=== PATIENT | female | born 1965 | race Caucasian/White ===

== ENCOUNTER → 2022-06-03 14:10 | Outpatient (BNVA) | payer MEDICAID, SELFPAY | PROVIDERS: Family Provider Nurse Practitioner Family; PCP Nurse Practitioner Family; Visit Provider Nurse Practitioner | DX: Z12.4 Encounter for screening for malignant neoplasm of cervix (principal); Z13.6 Encounter for screening for cardiovascular disorders; E55.9 Vitamin D deficiency, unspecified; M54.9 Dorsalgia, unspecified | CPT/HCPCS: 88175 ==

== ENCOUNTER → 2022-06-16 08:58 | Outpatient (BNVA) | payer MEDICAID, SELFPAY | PROVIDERS: Family Provider Nurse Practitioner Family; PCP Nurse Practitioner Family; Visit Provider Nurse Practitioner | DX: M54.9 Dorsalgia, unspecified (principal); Z13.6 Encounter for screening for cardiovascular disorders; E55.9 Vitamin D deficiency, unspecified | CPT/HCPCS: 72040; 72072; 72100; 80053; 80061; 82306; 82607; 84443; 85025 ==

== ENCOUNTER 2023-05-09 13:23 | Emergency (ER) | payer MEDICAID, SELFPAY ==
[2023-05-09 14:10] VITALS: PULSE 116; RESP 16; TEMP 36.7; O2SAT 96; BMI 19.3
[2023-05-09 16:48] LABS: Basophils # 0.1 10^3/uL (0.0-0.1); Basophils % 0.7 %; Eosinophils # 0.1 10^3/uL (0.0-0.8); Eosinophils % 0.9 %; Hematocrit 46.4 % (37.0-47.0); Hemoglobin 15.4 g/dL (11.5-15.3); Lymphocytes # 3.3 10^3/uL (0.8-4.8); Lymphocytes % 31.7 %; Mean Corpuscular HGB Conc 33.2 g/dL (30.0-36.0); Mean Corpuscular Volume 93.4 fl (81-99); Mean Platelet Volume 9.8 fL (7.4-10.4); Monocytes # 0.7 10^3/uL (0.2-0.9); Neutrophils # 6.17 10^3/uL (1.8-7.7); Neutrophils % 59.5 %; Nucleated Red Blood Cells % 0 %; Platelet Count 215 10^3/cmm (130-400); Red Blood Count 4.97 10^6/uL (4.1-5.3); Red Cell Distribution Width 13.1 % (12.1-15.1); White Blood Count 10.4 10^3/uL (4.0-10.0)
[2023-05-09 17:08] LABS: Alanine Aminotransferase 11 U/L (0-33); Albumin Level 4.8 g/dL (3.5-5.2); Alkaline Phosphatase 89 U/L (35-105); Anion Gap 19.1 (5-19); Aspartate Amino Transferase 18 U/L (0-32); Blood Urea Nitrogen 13 mg/dL (6-20); Carbon Dioxide 23 mmol/L (22-29); Chloride 102 mmol/L (98-107); Creatinine Clr Calc Pharmacy 78.3475; Globulin 2.5 g/dL (1.3-4.6); Glomerular Filtration Rate 85.6 mL/min (90-130); Glucose 99 mg/dL (65-115); Lipase 26 U/L (13-60); Magnesium 1.9 mg/dL (1.7-2.3); Osmolality Calculated 290 mOsm/kg (285-295); Potassium 4.1 mmol/L (3.5-5.1); Sodium 140 mmol/L (136-145); Total Bilirubin 0.3 mg/dL (0.15-1.2); Total Protein 7.3 g/dL (6.6-8.7)
[2023-05-09 18:15] VITALS: BP 153/111; PULSE 101; O2SAT 99
[2023-05-09 18:30] VITALS: PULSE 94; O2SAT 99
--- NOTE | 2023-05-09 18:34 | CTR_ITS ---
PROCEDURE INFORMATION: Exam: CT Abdomen And Pelvis With Contrast Exam date and time: 05/09/2023 7:25 PM Age: 57 years old Clinical indication: Abdominal pain; Epigastric; Additional info: Epigastric pain, nausea TECHNIQUE: Imaging protocol: Computed tomography of the abdomen and pelvis with contrast. Radiation optimization: All CT scans at this facility use at least one of these dose optimization techniques: automated exposure control; mA and/or kV adjustment per patient size (includes targeted exams where dose is matched to clinical indication); or iterative reconstruction. Contrast material: OMNI 350; Contrast volume: 100 ml; Contrast route: INTRAVENOUS (IV); REPORTING DATA: Count of CT and Cardiac NM exams in prior 12 months: This patient has received 0 known CTs and 0 known cardiac nuclear medicine studies in the 12 months prior to the current study. COMPARISON: CR XR lumbar spine 2-3V* [id number] 06/16/2022 9:11 AM RADIATION DOSE METRICS: Total DLP (mGy-cm): 306.73 FINDINGS: Lungs: Emphysematous changes. Liver: Hepatic steatosis. Left hepatic lobe 23 mm probable hemangioma. Gallbladder and bile ducts: Normal. No calcified stones. No ductal dilation. Pancreas: Normal. No ductal dilation. Spleen: Normal. No splenomegaly. Adrenal glands: Normal. No mass. Kidneys and ureters: Normal. No hydronephrosis. Stomach and bowel: Prominent fluid in the small bowel with gastric wall thickening seen in the region of the distal body, please correlate for gastritis. Constipation. Minimal diverticulosis without diverticulitis. Appendix: No evidence of appendicitis. Intraperitoneal space: Unremarkable. No free air. No significant fluid collection. Vasculature: Unremarkable. No abdominal aortic aneurysm. Lymph nodes: Unremarkable. No enlarged lymph nodes. Urinary bladder: Unremarkable as visualized. Reproductive: Unremarkable as visualized. Bones/joints: Unremarkable. No acute fracture. Soft tissues: Unremarkable. CT/CT abdomen pelvis w con* [id number] IMPRESSION: 1. Prominent fluid in the small bowel with gastric wall thickening seen in the region of the distal body, please correlate for gastritis. 2. Emphysematous changes. 3. Hepatic steatosis. 4. Left hepatic lobe 23 mm probable hemangioma. 5. Constipation. 6. Minimal diverticulosis without diverticulitis.
--- NOTE | 2023-05-09 18:34 | ECG_ITS ---
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 Measurements Intervals [place] Rate: 96 P: 82 IN: 147 QRS: 71 QRSD: 84 T: 82 QT: 358 QTc: 452 Interpretive Statements SINUS RHYTHM WITH SINUS ARRHYTHMIA RIGHT ATRIAL ENLARGEMENT [0.3mV P-WAVE] LEFT ATRIAL ENLARGEMENT [-0.15mV P-WAVE IN V1/V2] Compared to ECG 09/08/2016 02:06:07 Atrial abnormality now present Poor R-wave progression no longer present Electronically Signed On 05-10-2023 20:21:31 CDT by Mary Castillo M.D. [email or web address]
--- NOTE | 2023-05-09 18:45 | ED_ITS ---
HPI - Abdominal Pain General: Chief Complaint: Abdominal Pain Stated Complaint: Abd pain/pressure Time Seen by Provider: 05/09/23 18:33 History of Present Illness: 57-year-old female comes in today for complaints of epigastric abdominal pain. Patient reports that she has had this discomfort for 2 to 3 months now but worse over the last 3 days. Patient has tried different modalities for gastritis and flatulence with no relief. Patient takes occasional Tylenol and ibuprofen or a spirin for her discomfort, patient uses valerian root occasionally for sleeplessness. Patient smokes cigarettes and marijuana. Patient uses alcohol rarely and denies any other drug use. Patient reports that eating makes her abdominal discomfort worse. Patient has a history of breast cancer with last treatment in 2012. Patient reports some cardiac injury secondary to chemotherapy. Patient had double mastectomy for breast cancer. Patient denies any other surgeries. Associated Symptoms: Denies fever(s) Review of Systems Const: Denies: fever(s) Card: Denies: chest pain Resp: Denies: dyspnea GI: Reports: abdominal pain Musc: Reports: other (General weakness at times) Skin/Breast: Denies: rash PFSH ED PFSH: Medical History Cardiac abnormality decrease cardiac output chemotherapy 2012 History of breast cancer 2011 Surgical History History of bilateral mastectomy 2011 with [facility] History of removal of Port-a-Cath History of tonsillectomy and adenoidectomy Family History Father Cardiac abnormality Social History Smoking and tobacco status: current every day smoker cigarettes Alcohol intake: current Alcohol intake frequency: holidays/special occasions only Alcohol type: beer Substance/Drug Use: never Adopted: No Lives independently: Yes Housing: House Marital status: Number of children: 4 Number of grandchildren: 7 Highest education level completed: GED or Equivalent service: Yes status: Reserves branch: [employer] Assignments: Inside [facility] Pets and animals: No Current gender identity: Female Special benito needs: No Agree to transfusion: Yes Financial difficulty paying for basics: Not Very Hard Female Reproductive History: Para: 4 Date of menopause: 06/15/12 Physical Exam Const: COMMON NORMALS: alert HENMT: COMMON NORMALS: normocephalic HEAD & SCALP: normocephalic MOUTH: Normal oral and palatal mucosa present Neck/C-Spine: COMMON NORMALS: full ROM and no meningeal signs Resp: COMMON NORMALS: normal respiratory effort and clear to auscultation bilaterally AUSCULTATION: clear to auscultation bilaterally Cardio: COMMON NORMALS: regular rate and regular rhythm RATE: regular rate RHYTHM: regular rhythm GI: COMMON NORMALS: Soft to palpation PALPATION: Yes Soft to palpation and Yes Tenderness to palpation present (GI) (Midepigastric) : COMMON NORMALS: Yes no CVA tenderness BLADDER/KIDNEY EXAM: Yes no CVA tenderness Back/Pelvis: COMMON NORMALS: no CVA tenderness and thoracic and lumbar spine normal to inspection Extremity: COMMON NORMALS: no pedal edema Neuro: SENSORIUM/ORIENTATION: Yes alert MENINGEAL SIGNS: Yes no meningeal signs Skin: COMMON NORMALS: turgor normal GENERAL SKIN EXAM: turgor normal Course Vital Signs: Vital signs: Vital Signs Temperature 98.1 F 05/09/23 14:10 Pulse Rate 94 05/09/23 20:04 Respiratory Rate 16 05/09/23 20:04 Blood Pressure 142/82 05/09/23 20:04 Pulse Oximetry 97 05/09/23 20:04 Oxygen Delivery Me thod Room Air 05/09/23 18:30 MDM - Abdominal Pain Medical Decision Making 57-year-old female comes in today with mid epigastric abdominal pain on and off for months increased with eating. For the last 3 days patient reports increased discomfort with no relief from anti-gas medication or [id number] pain relievers. Patient appears nontoxic. Abdomen soft with some mid epigastric tenderness. Bowel sounds are present. Vital signs are normal except for some mild elevation in blood pressure. Differential diagnosis includes but not limited to hiatal hernia, gastritis, pancreatitis, gallbladder disease, metastatic disease, gastroenteritis. Laboratory values were unremarkable. CT of the abdomen and pelvis noted some gastric wall thickening and prominent fluid in the small bowel suggesting gastritis. Otherwise patient's CT was unremarkable except for some constipation and a hemangioma of the liver. Reviewed exam with patient recommended treatment for gastritis with pantoprazole. Recommend follow-up with primary care for reevaluation of treatment and possible referral for endoscopy. Patient reported understanding and agreed to plan. Lab Data 05/09/23 16:27 05/09/23 16:27 Labs/Radiology: Radiology Impressions Abdomen/Pelvis CT 05/09/23 18:34 IMPRESSION: 1. Prominent fluid in the small bowel with gastric wall thickening seen in the region of the distal body, please correlate for gastritis. 2. Emphysematous changes. 3. Hepatic steatosis. 4. Left hepatic lobe 23 mm probable hemangioma. 5. Constipation. 6. Minimal diverticulosis without diverticulitis. Laboratory Results WBC 10.4 10^3/uL (4.0-10.0) H 05/09/23 16: RBC 4.97 10^6/uL (4.1-5.3) 05/09/23 16: Hgb 15.4 g/dL (11.5-15.3) H 05/09/23 16:27 Hct 46.4 % (37.0-47.0) 05/09/23 16:27 MCV 93.4 fl (81-99) 05/09/23 16:27 MCH 31.0 pg (28.0-34.0) 05/09/23 16:27 MCHC 33.2 g/dL (30.0-36.0) 05/09/23 16:27 RDW 13.1 % (12.1-15.1) 05/09/23 16:27 Plt Count 215 10^3/cmm (130-400) 05/09/23 16:27 MPV 9.8 fL (7.4-10.4) 05/09/23 16:27 Neut % (Auto) 59.5 % 05/09/23 16:27 Lymph % (Auto) 31.7 % 05/09/23 16:27 [place] % (Auto) 7.0 % 05/09/23 16:27 Eos % (Auto) 0.9 % 05/09/23 16: Baso % (Auto) 0.7 % 05/09/23 16:27 Neut # (Auto) 6.17 10^3/uL (1.8-7.7) 05/09/23 16:27 Lymph # (Auto) 3.3 10^3/uL (0.8-4.8) 05/09/23 16:27 [place] # (Auto) 0.7 10^3/uL (0.2-0.9) 05/09/23 16:27 Eos # (Auto) 0.1 10^3/uL (0.0-0.8) 05/09/23 16:27 Baso # (Auto) 0.1 10^3/uL (0.0-0.1) 05/09/23 16:27 Nucleated RBC % (auto) 0 % 05/09/23 16:27 Nucleated RBCs # 0.0 /100WBC 05/09/23 16:27 Sodium 140 mmol/L (136-145) 05/09/23 16:27 Potassium 4.1 mmol/L (3.5-5.1) 05/09/23 16:27 Chloride 102 mmol/L (98-107) 05/09/23 16:27 Carbon Dioxide 23 mmol/L (22-29) 05/09/23 16:27 Anion Gap 19.1 (5-19) H 05/09/23 16:27 BUN 13 mg/dL (6-20) 05/09/23 16:27 Creatinine 0.7 mg/dL (0.5-0.9) 05/09/23 16:27 GFR Calculation 85.6 mL/min (90-130) L 05/09/23 16:27 Glucose 99 mg/dL (65-115) 05/09/23 16:27 Calculated Osmolality 290 mOsm/kg (285-295) 05/09/23 16:27 Calcium 10.0 mg/dL (8.5-10.5) 05/09/23 16:27 Magnesium 1.9 mg/dL (1.7-2.3) 05/09/23 16:27 Total Bilirubin 0.3 mg/dL (0.15-1.2) 05/09/23 16:27 AST 18 U/L (0-32) 05/09/23 16:27 ALT 11 U/L (0-33) 05/09/23 16:27 Alkaline Phosphatase 89 U/L (35-105) 05/09/23 16:27 Troponin T Gen 5 ng/L 9 ng/L (0-10) 05/09/23 16:27 Total Protein 7.3 g/dL (6.6-8.7) 05/09/23 16:27 Albumin 4.8 g/dL (3.5-5.2) 05/09/23 16:27 Globulin 2.5 g/dL (1.3-4.6) 05/09/23 16:27 Lipase 26 U/L (13-60) 05/09/23 16:27 TSH 2.03 uIU/mL (0.27-4.20) 05/09/23 16:27 Urine Color Yellow (Yellow) 05/09/23 19:41 Urine Appearance Clear (CLEAR) 05/09/23 19:41 Urine pH 6.5 (5-7) 05/09/23 19:41 Ur Specific [place] 1.010 (1.005-1.030) 05/09/23 19:41 Urine Protein Neg (Negative) 05/09/23 19:41 Urine Glucose (UA) Norm (Normal) 05/09/23 19:41 Urine Ketones 1+ (Negative) H 05/09/23 19:41 Urine Blood Trace (Negative) H 05/09/23 19:41 Urine Nitrate Negative (Negative) 05/09/23 19:41 Urine Bilirubin Neg (Negative) 05/09/23 19:41 Urine Urobilinogen Norm mg/dL (Negative) 05/09/23 19:41 Ur Leukocyte Esterase Negative (Negative) 05/09/23 19:41 Urine RBC 0-4 /hpf (0-2) H 05/09/23 19:41 Urine WBC 0-4 /hpf (0-5) H 05/09/23 19:41 Ur Squamous Epith Cells 0-4 /hpf (0-5) H 05/09/23 19:41 Amorphous Sediment Not Reportable 05/09/23 19:41 Urine Bacteria Trace /hpf (NONE) 05/09/23 19:41 EKG Data EKG 1: EKG interpretation date: 05/09/23 EKG interpretation time: 19:04 Prior EKG tracings: not available for review Interpretation: EKG shows a sinus rhythm slightly irregular due to sinus arrhythmia at [address] elevation or ectopy is noted. No prior exam was available for comparison. Computer generated interpretation: Sinus rhythm with sinus arrhythmia, right atrial enlargement, left atrial enlargement, abnormal EKG, unconfirmed report. Discharge Plan Discharge Patient Disposition: Home Clinical Impression: Gastritis Qualifiers: Gastritis type: unspecified gastritis Chronicity: unspecified Gastritis bleeding: presence of bleeding unspecified Qualified Code(s): K29.70 - Gastritis, unspecified, without bleeding Condition: Stable Prescriptions: New pantoprazole 20 mg tablet,delayed release (DR/EC) 20 mg PO DAILY Qty: 14 0RF No Action valerian root 100 mg capsule 100 mg PO DAILY PRN Discharge Orders: Discharge ED (Routine); Ordered 05/09/23 Ordered By: Gerson Whitman Referrals: Gaby Chen, EDUCATIONAL ADMINISTRATION TEACHER-C [Primary Care Provider] - Discharge Diet: Usual diet Discharge Activity: Increase activity as tolerated Patient Instructions: Gastritis (ED), Diet for Stomach Ulcers and Gastritis (ED) Activity Restrictions/Additional Instructions: TabletDrink plenty of water and fluids. Take pantoprazole daily 30 minutes before your first meal of the day. Follow-up with primary care in 2 weeks for recheck. Return to ER for worsening symptoms such as blood in vomit or stool, high fever, or uncontrolled pain. Coding Level of Care Code ED Meatcutter for Gilmer Myers
[2023-05-09 19:18] LABS: Thyroid Stimulating Hormone 2.03 uIU/mL (0.27-4.20)
[2023-05-09 19:31] LABS: Troponin T (5th) Once 9 ng/L (0-10)
[2023-05-09] MEDS: iohexol 350 mg/mL 500 mL Btl (per mL) IV (19:40)
[2023-05-09 20:04] VITALS: BP 142/82; PULSE 94; RESP 16; O2SAT 97
[2023-05-09] MEDS: pantoprazole DR 40 mg Tablet PO (20:05)
[2023-05-09 20:08] LABS: Bilirubin Urine Neg (Negative); Blood Urine Trace (Negative); Glucose Urine UA Norm (Normal); Ketones Urine 1+ (Negative); Leukocyte Esterase Urine Negative (Negative); Nitrate Urine Negative (Negative); Protein Urine Neg (Negative); Urine Appearance Clear (CLEAR); Urine Color Yellow (Yellow); Urobilinogen Urine Norm (Negative); pH Urine 6.5 (5-7)
[2023-05-09 20:09] LABS: Add Urine Culture? No; Add Urine Microscopic? YES; Bacteria Urine TRACE /hpf; RBC Urine 0-4 /hpf (0-2); Squamous Epithelial Cell Urine 0-4 /hpf (0-5); WBC Urine 0-4 /hpf (0-5)
== END 2023-05-09 20:17 | disposition home or self-care (01) ==
PROVIDERS: Emergency Medicine; Emergency Provider Nurse Practitioner Family; PCP Nurse Practitioner
DX: K29.70 Gastritis, unspecified, without bleeding (principal); Z85.3 Personal history of malignant neoplasm of breast; F17.210 Nicotine dependence, cigarettes, uncomplicated; Z92.21 Personal history of antineoplastic chemotherapy
CPT/HCPCS: 36415; 74177; 80053; 81001; 83690; 83735; 84443; 84484; 85025; 93005; 99285; Q9967

== ENCOUNTER → 2023-07-27 14:26 | Outpatient (BNVA) | payer MEDICAID, SELFPAY | PROVIDERS: PCP Nurse Practitioner; Visit Provider Nurse Practitioner | DX: R05.9 Cough, unspecified (principal); J40 Bronchitis, not specified as acute or chronic; I70.0 Atherosclerosis of aorta | CPT/HCPCS: 71046; 80053; 85025 ==

== ENCOUNTER → 2023-08-25 20:48 | Outpatient (BNVA) | payer MEDICAID, SELFPAY | PROVIDERS: PCP Nurse Practitioner; Visit Provider Nurse Practitioner | DX: L98.9 Disorder of the skin and subcutaneous tissue, unspecified (principal) | CPT/HCPCS: 88304 ==